=== PATIENT | male | born 1980 | race Caucasian/White ===

== ENCOUNTER 2017-12-10 06:26 | Day surgery (SDC) | payer BC ==
[2017-12-06 13:07] VITALS: BMI 25.0
[~2017-12-10 06:26] MED LIST: DEXAMETHASONE SOD PHOSPHATE 10 MG/ML 1 ML VIAL IV ONE; HEPARIN SODIUM,PORCINE 5,000 UNIT/ML 1 ML VIAL SQ ONE; LACTATED RINGERS 1,000 ML IV SCH; MIDAZOLAM 2 MG/2 ML VIAL IV PRN; MORPHINE SULFATE 4 MG/ML SYRINGE IV PRN; ONDANSETRON 4 MG/2 ML VIAL IVP ONE; Pre Op ABX Message 1 EACH MISC MISCELLANE ONE; SCOPOLAMINE 1.5MG/72HR PATCH TRANSDERM ONE
[2017-12-10 06:55] VITALS: RESP 16
[2017-12-10] MEDS ORDERED: BUPIVACAINE (PF) 0.25% 30 ML VIAL SQ ONE (07:08)
[2017-12-10] MEDS ORDERED: LIDOCAINE 1% 20 ML VIAL (10MG/ML) FOR IV START INTRADERMA ONE (07:19)
--- NOTE | 2017-12-10 07:53 | P.GSHP ---
History of Present Illness H&P Date: 12/10/17 Chief Complaint: Scalp cyst Patient is known from outpatient evaluation in the office. Patient has complaints of 4 separate scalp cysts. He is a been enlarging. They are painful. The largest is in the left anterior position. No drainage. No redness. Past Medical History Past Medical History: No Reported History History of Any Multi-Drug Resistant Organisms: None Reported Past Surgical History: No Surgical Hx Reported Additional Past Surgical History / Comment(s): [place] Teeth Past Anesthesia/Blood Transfusion Reactions: Motion Sickness Additional Past Anesthesia/Blood Transfusion Reaction / Comment(s): No Surgery Smoking Status: Never smoker - Past Family History Mother Family Medical History: Cancer Additional Family Medical History / Comment(s): Breast CA Medications and Allergies Home Medications Medication Instructions Recorded Confirmed Type No Known Home Medications [No 12/06/17 12/10/17 History Known Home Medications] Allergies Allergy/AdvReac Type Severity Reaction Status Date / Time No Known Allergies Allergy Verified 12/10/17 06:55 Surgical - Exam Vital Signs Temp Pulse Resp BP Pulse Ox 97.0 F L 89 16 133/89 98 12/10/17 06:53 12/10/17 06:53 12/10/17 06:53 12/10/17 06:53 12/10/17 06:53 Physical exam: General: Well-developed, well-nourished HEENT: Normocephalic, sclerae nonicteric, 4 separate sebaceous cysts in the scalp, largest 2.5 cm left anterior, 1.5 cm left anterior, 1.5 cm left mid scalp , 7-8 mm posterior mid scalp Abdomen: Nontender, nondistended Extremities: No edema Neuro: Alert and oriented Assessment and Plan (1) Scalp cyst Narrative/Plan: We'll proceed with surgical excision today. Risks of bleeding, infection, recurrence reviewed. We decided to avoid removing the smallest posterior lesion at this time. Current Visit: Yes Status: Acute Code(s): L72.9 - FOLLICULAR CYST OF THE SKIN AND SUBCUTANEOUS TISSUE, UNSP SNOMED Code(s): 213388462
[2017-12-10] MEDS ORDERED: fentaNYL (PF) 50 MCG/ML 2 ML AMP ONE (08:04)
[2017-12-10] MEDS ORDERED: LIDOCAINE 1% INJ 10MG/ML (20 ML MDV) ONE (08:04)
[2017-12-10] MEDS ORDERED: GLYCOPYRROLATE 0.2 MG/ML 2 ML VIAL ONE (08:04)
[2017-12-10] MEDS ORDERED: PROPOFOL 10 MG/ML 20 ML VIAL IV ONE (08:04)
[2017-12-10] MEDS ORDERED: MIDAZOLAM 2 MG/2 ML VIAL ONE (08:04)
[2017-12-10] MEDS ORDERED: SODIUM CHLORIDE 0.9% 100 ML with ceFAZolin 2,000 MG IV ONE ×2 (08:21)
[2017-12-10] MEDS ORDERED: BACITRACIN OINT 1 EACH PACKET TOPICAL ONE (08:50)
[2017-12-10] MEDS ORDERED: NALOXONE 0.4 MG/ML 1 ML VIAL IV PRN (08:53)
[2017-12-10] MEDS ORDERED: HYDROcodone/APAP 5-325MG 1 EACH TAB PO PRN (08:53)
--- NOTE | 2017-12-10 08:56 | P.PCN ---
Date of Procedure: 12/10/17 Procedure(s) Performed: PREOPERATIVE DIAGNOSIS: Scalp cyst 3 POSTOPERATIVE DIAGNOSIS: Same PROCEDURE: Excision SURGEON: Trace EBL: 20 mL ANESTHESIA: General COMPLICATIONS: None OPERATIVE PROCEDURE: Patient was placed in the operating table in the supine position. The patient was placed under general anesthesia. The 3 scalp lesions were identified. The hair was shaved over the 2 larger lesions. The area was prepped and draped in the usual sterile fashion at that time. At the largest site of the skin was excised in elliptical fashion in the subcutaneous cystic lesion was fully excised. The 2 smaller lesions both measuring about 1.5 cm in size were removed using a horizontal incision overlying the masses. The skin at all sites was closed with 4-0 nylon sutures. Bacitracin was applied. DISPOSITION: Stable to recovery room
[2017-12-10 09:08] VITALS: TEMP 98
[2017-12-10 10:01] VITALS: PULSE 99
[2017-12-10 10:03] VITALS: BP 132/82
--- NOTE | 2017-12-15 10:00 | CDI ---
Date: 12/15/17 CDS/Electrologist Name: Maryjo Novoa Phone: If any questions, call Brigida Her Pouch Making Machine Operator at [phone] Patient Name: James Larry Admit Date: 12/10/17 Discharge Date: 12/10/17 ATTENTION: The [facility] Coding Staff appreciate your assistance in clarifying documentation. Please respond to the clarification below the line at the bottom and electronically sign. The [facility] Coding staff will review the response and follow-up if needed. Please note: Queries are made part of the Legal Health Record. If you have any questions, please contact the Pouch Making Machine Operator. Dear Dr. Woodward Please providie clarification as to exactly how many lesions were excised and if any two or more were excised through the same excision. There is conficting documentation between the H&P and Procedure note as to the number of lesions (3 or 4) and the sizes. Was the 7-8 mm lesion excised and was it mm or cm in size. Thank you for your kind consideration. _3 lesions were excised through 3 different incisions. There was no fourth lesion removed at this time. MTDD
== END 2017-12-10 11:14 | disposition home or self-care (01) ==
LOC: OR 06:26
PROVIDERS: ATTEND Surgery
DX: L72.11 Pilar cyst (principal)
CPT/HCPCS: 11423; 11422 ×2; 88304; J2250; J1644; J1100; J2405; J0690; J2001; J3010; J2704